=== PATIENT | male | born 1955 | race Caucasian/White ===

== ENCOUNTER 2017-02-26 15:02 | Outpatient (RCR) | payer BC ==
[~2017-02-26 15:02] MED LIST: AMLO5TAB2 PO; HCTZ12.5T PO; LISI10TA PO; MTP50T PO
== END 2017-04-05 | disposition home or self-care (01) ==
LOC: DSME 15:02
PROVIDERS: ATTEND Nurse Practitioner Family
DX: E11.65 Type 2 diabetes mellitus with hyperglycemia (principal); E66.9 Obesity, unspecified

== ENCOUNTER 2017-06-16 08:36 | Outpatient (CLI) | payer BC ==
[~2017-06-16] VITALS: Ht 172.7 cm; Wt 119.7 kg
[2017-06-16 08:50] VITALS: BP 138/72
[2017-06-17] MEDS ORDERED: CYAN500T44 PO (10:57)
[2017-06-17] MEDS ORDERED: SITA100T12 PO (10:57)
[2017-06-17] MEDS ORDERED: CLOP75TA69 PO (10:57)
[2017-06-17] MEDS ORDERED: METO50TA15 PO (10:57)
[2017-06-17] MEDS ORDERED: OMEG-154 PO (10:57)
[2017-06-17] MEDS ORDERED: HYDR-3812 PO (10:57)
[2017-06-17] MEDS ORDERED: AMLO5TAB2 PO (10:57)
[2017-06-17] MEDS ORDERED: METF500T4 PO (10:57)
[2017-06-17] MEDS ORDERED: CLON0.1T PO (10:57)
[2017-06-17] MEDS ORDERED: BUTA1CAP41 PO (10:57)
[2017-06-17] MEDS ORDERED: LISI10TA2 PO (10:57)
[2017-06-17] MEDS ORDERED: ASPI-586 PO (10:57)
[2017-06-17] MEDS ORDERED: CHOL200059 PO (12:10)
[2017-06-17] MEDS ORDERED: MAGN400T39 PO (12:10)
[2017-06-17] MEDS ORDERED: NIAC500T24 PO (12:10)
== END 2017-06-16 09:00 | disposition home or self-care (01) ==
LOC: PREOP 08:36
PROVIDERS: ATTEND Surgery
DX: Z01.818 Encounter for other preprocedural examination (principal); Z11.2 Encounter for screening for other bacterial diseases; K42.9 Umbilical hernia without obstruction or gangrene
CPT/HCPCS: 87081

== ENCOUNTER 2017-06-19 06:00 | Day surgery (SDC) | payer BC ==
[2017-06-17 14:15] VITALS: BP 106/61
[~2017-06-19] VITALS: Ht 172.7 cm; Wt 119.7 kg
[~2017-06-19 06:00] MED LIST changes: +ASPI-586 PO; +BUTA1CAP41 PO; +CHOL200059 PO; +CLON0.1T PO; +CLOP75TA69 PO; +CYAN500T44 PO; +HYDR-3812 PO; +LISI10TA2 PO; +MAGN400T39 PO; +METF500T4 PO; +METO50TA15 PO; +NIAC500T24 PO; +OMEG-154 PO; +SITA100T12 PO
[2017-06-19] MEDS ORDERED: LACTATED RINGERS 1,000 ML IV PRN (07:06)
[2017-06-19 07:45] VITALS: BP 114/64
[2017-06-19] MEDS ORDERED: ceFAZolin 2 GM/NS 50 ML IV ONE (08:00)
[2017-06-19] MEDS: LACTATED RINGERS 1,000 ML IV PRN ×2 (08:20→11:35)
[2017-06-19] MEDS ORDERED: ceFAZolin 2 GM/50 ML NS 50 ML IV ONE (08:30)
[2017-06-19] MEDS ORDERED: NEOSTIGMINE (BLOXIVERZ ) 1 MG/1ML 10 ML VIAL ONE (10:23)
[2017-06-19] MEDS ORDERED: fentaNYL INJECTION 250 MCG/5 ML AMP ONE (10:23)
[2017-06-19] MEDS ORDERED: ONDANSETRON 4 MG/2 ML (SDV) Z0FRAN ONE (10:23)
[2017-06-19] MEDS ORDERED: proPOfol 200 MG/20 ML (DIPRIVAN) VIAL IV ONE (10:23)
[2017-06-19] MEDS ORDERED: GLYCOPYRROLATE 0.2 MG/ML (ROBINUL) 2 ML VIAL ONE (10:23)
[2017-06-19] MEDS ORDERED: LIDOCAINE PF 2% 5 ML (XYLOCAINE) VIAL ONE (10:23)
[2017-06-19] MEDS ORDERED: MIDAZOLAM 2 MG/2 ML (VERSED) VIAL ONE (10:23)
[2017-06-19] MEDS ORDERED: ROCURONIUM 50 MG/5 ML (ZEMURON) VIAL IV ONE (10:23)
[2017-06-19] MEDS ORDERED: SEVOFLURANE (ULTANE) 15 ML INHAL SOLN ONE (10:23)
[2017-06-19] MEDS ORDERED: LIDOCAINE 1% INJ 20 ML (XYLOCAINE) VIAL ONE (10:29)
[2017-06-19] MEDS ORDERED: BUPIVACAINE 0.5% 30 ML (SENSORCAINE) VIAL ONE (10:29)
[2017-06-19] MEDS ORDERED: LIDOCAINE 1% INJ 20 ML (XYLOCAINE) VIAL INJ ONE (11:30)
[2017-06-19] MEDS ORDERED: BUPIVACAINE 0.5% 30 ML (SENSORCAINE) VIAL INJ ONE (11:30)
--- NOTE | 2017-06-19 11:56 | Progress Note-Post Operative ---
Post-Operative Progess Note Surgeon (s)/Radiologic Technician (s) Surgeon SNEHA FARRIS DO Radiologic Technician: Dr. Gonsales Pre-Operative Diagnosis hernia repair Post-Operative Diagnosis umiblical hernia, possible cirrhosis Procedure & Operative Findings Date of Procedure 06/19/17 Procedure Performed/Findings lap umbilical hernia repair and liver biopsy Anesthesia Type general Estimated Blood Loss Estimated blood loss (mL): minimal Specimens/Packing Specimens Removed liver biopsy SNEHA FARRIS DO Jun 19, 2017 11:56
[2017-06-19] MEDS ORDERED: DOCU-143 PO (11:58)
[2017-06-19] MEDS ORDERED: HYDR-3812 PO (11:58)
[2017-06-19] MEDS ORDERED: HYDROcodone/APAP 5 MG/325 MG (LORTAB) TAB PO PRN (12:00)
--- NOTE | 2017-06-19 12:00 | Discharge Inst-Simple/Standard ---
Discharge Inst-Standard Discharge Medications New, Converted or Re-Newed RX: RX on Chart Patient Instructions/Follow Up Plan of Care/Instructions/FU: 3 weeks Qamar Activity as Tolerated: No Discharge Diet: Regular Diet Other Inst to Patient Follow up Appt: Make appointment for 3 week. Instructions: No lifting greater than 10 pounds. No strenuous activity. May shower in 24 hours, no tub bath or soaking. Use incentive spirometer at home as directed. No Smoking Skin/Wound Care: May remove bandages in 48hrs You have special glue over incision it will fall off on its own. Symptoms to Report: Appetite Changes, Extremity Discoloration, Numbness/Tingling, Swelling Increased , Bleeding Excessive, Eyesight Changes, Pain Increased, Urine Color Change, Constipation(Persistent), Fever over 101 degree F, Pain/Pressure in chest, Urinating Difficulty, Cough Up/Vomit Blood, Heart Beat Irreg/Pounding, Pain/ Pressure in jaw, Vaginal Bleeding Increase, Cramps in feet or legs, Lightheadedness, Pain/Pressure in shoulder, Diarrhea(Persistent), Memory Changes Suddenly, Questions/Concerns, Weight gain consecutive days, Dizziness/ Fainting, Nausea/Vomiting, Shortness of Breath, Weight gain over 2 pounds If questions or concerns contact your physician Or seek help at emergency department. SNEHA FARRIS DO Jun 19, 2017 12:00
[2017-06-19] MEDS ORDERED: ONDANSETRON 4 MG/2 ML (SDV) Z0FRAN IVP PRN (12:30)
[2017-06-19] MEDS ORDERED: morphine INJ 10 MG/ML 1ML (SYR OR VIAL) IVP PRN (12:30)
[2017-06-19] MEDS ORDERED: HYDROmorphone (DILAUDID) 2 MG/ML VIAL IVP PRN (12:30)
--- NOTE | 2017-06-19 13:14 | Anesthesia-General Post-Op ---
General Patient Condition Mental Status/LOC: Same as Preop Cardiovascular: Satisfactory Nausea/Vomiting: Absent Respiratory: Satisfactory Pain: Controlled Complications: Absent Post Op Complications Complications None Follow Up Care/Instructions Patient Instructions None needed. Anesthesia/Patient Condition Patient Condition Patient is doing well, no complaints, stable vital signs, no apparent adverse anesthesia problems. No complications reported per nursing. D/C home per [facility] [place] Criteria: AUSTIN Marshall DO Jun 19, 2017 13:14
[2017-06-19 13:15] VITALS: BP 95/56
[2017-06-19 13:45] VITALS: BP 100/61
[2017-06-19 13:50] VITALS: BP 100/61
--- NOTE | 2017-06-19 19:06 | OPERATIVE REPORT ---
DATE OF SERVICE: 06/19/2017 PREOPERATIVE DIAGNOSIS: Umbilical hernia. POSTOPERATIVE DIAGNOSIS: Umbilical hernia. Possible cirrhosis. PROCEDURE: Laparoscopic umbilical hernia repair with 6 inch echo Ventralight mesh and liver biopsy using a Haim-Cut needle. SURGEON: Rhys Foote DO ASSISTANT SHIFT SUPERVISOR: Dr. Gonsales, who assisted in retraction, dissection and closure. ANESTHESIA: General. ESTIMATED BLOOD LOSS: Minimal. COMPLICATIONS: None. INDICATIONS: The patient is a 61-year-old male with an umbilical hernia. He was explained risks and benefits of procedure and wished to proceed with procedure. Consent was signed and in the chart. PROCEDURE: The patient was taken to the operating suite, was prepped and draped in sterile fashion. Surgical pause was performed. A stab incision was made in the left upper quadrant. Veress needle was inserted in the abdomen and pneumoperitoneum was achieved. Under direct visualization of the laparoscope, a 5 mm trocar was then placed. The hernia noted with omental fat in through the defect. A 12 mm trocar was then placed in the left lower quadrant and a 5 mm trocar was placed in the right lower quadrant. The hernia contents were then reduced. The hernia defect was then closed through a stab incision using a Deandre-Amaris and 0 Vicryl suture. The abdomen was then inspected. The liver had some surface changes possible early cirrhosis. Therefore, it was decided to take a Haim-Cut biopsy of the liver. A stab incision was made in the epigastric region of the abdomen. A Haim-Cut needle was inserted into the abdomen and into the liver and biopsy was obtained. Hook cautery was used to achieve hemostasis. A 6 inch echo Ventralight mesh was then inserted into the abdomen and grasped through a stab incision at the umbilicus. The balloon was then insufflated. A SecureStrap Tacker was then used to tack the mesh in place circumferentially. The balloon was then removed and an inner crown was made as well. There was adequate coverage. The 12 mm trocar site was then closed using 0 Vicryl with an Endoclose after the trocar was removed. The abdomen was then desufflated, the trocars were removed. The skin was then closed using 4-0 Vicryl in a subcuticular fashion. The areas were then washed and dried and Dermabond was placed over the incisions. The patient tolerated procedure well without any complications and taken to recovery room in stable condition. Job ID: [id number] DocumentID: [id number] Dictated Date: 06/19/2017 13:38:19 Residency Program Coordinator Date: 06/19/2017 19:05:12 Dictated By: DO CAROLYN ORR
== END 2017-06-19 14:45 | disposition home or self-care (01) ==
LOC: SDC 06:00
PROVIDERS: ATTEND Surgery
DX: K42.9 Umbilical hernia without obstruction or gangrene (principal); I10 Essential (primary) hypertension; I25.10 Atherosclerotic heart disease of native coronary artery without angina pectoris; E11.9 Type 2 diabetes mellitus without complications; G43.909 Migraine, unspecified, not intractable, without status migrainosus; E66.9 Obesity, unspecified; Z68.41 Body mass index [BMI] 40.0-44.9, adult; Z95.5 Presence of coronary angioplasty implant and graft; Z79.02 Long term (current) use of antithrombotics/antiplatelets; Z79.899 Other long term (current) drug therapy; Z79.82 Long term (current) use of aspirin
CPT/HCPCS: 82962

== ENCOUNTER → 2017-07-15 | Outpatient (CLI) | payer BC ==
[~2017-07-15] MED LIST changes: +ACHD5005 PO; +DOCU-143 PO; -HYDR-3812 PO
--- NOTE | 2017-07-15 19:16 | Diagnostic Imaging Report ---
INDICATION: Abdominal pain and vomiting. Comparison is made to the prior study from . FINDINGS: There is a moderate degree of stool within the visualized portions of the colon. There is some gas within the transverse colon and there is gas within the stomach without significant distention. There is no small bowel dilation evident. Lung bases appear clear. There is no significant free air. There are degenerative features present within the lumbar spine. IMPRESSION: 1. Moderate stool within the colon with mild gaseous distention of the stomach. There is no evidence to suggest abnormal small bowel dilation. Dictated by: Dictated on workstation # [id number]
== END ==
LOC: RAD 18:46
PROVIDERS: ATTEND Nurse Practitioner Family
DX: K31.89 Other diseases of stomach and duodenum (principal); R11.10 Vomiting, unspecified
CPT/HCPCS: 74018

== ENCOUNTER 2017-07-16 10:12 | Outpatient (CLI) | payer BC ==
[~2017-07-16] VITALS: Ht 172.7 cm; Wt 119.7 kg
[2017-07-16 10:20] VITALS: BP 168/88
[2017-07-16] MEDS ORDERED: FLEET ENEMA ADULT 1 EA BTL ONE (10:31)
[2017-07-16] MEDS ORDERED: FLEET ENEMA ADULT 1 EA BTL PR ONE ×2 (11:15→11:30)
[2017-07-16] MEDS ORDERED: fentaNYL INJECTION 100 MCG/2 ML AMP ONE (11:27)
[2017-07-16] MEDS ORDERED: BISACODYL 10 MG SUPP (DULCOLAX) PR ONE (11:30)
[2017-07-16] MEDS ORDERED: fentaNYL INJECTION 100 MCG/2 ML AMP IM ONE (11:30)
== END 2017-07-16 13:42 | disposition home or self-care (01) ==
LOC: SDC 10:12
PROVIDERS: ATTEND Nurse Practitioner Family
DX: K59.00 Constipation, unspecified (principal); D64.9 Anemia, unspecified
CPT/HCPCS: 99212

== ENCOUNTER 2020-11-13 01:16 | Observation (INO) | payer BC ==
[2020-11-13] VITALS (8 sets, daily range): BP systolic 125–151; BP diastolic 53–92
[~2020-11-13] VITALS: Ht 172.7 cm; Wt 122.0 kg
[~2020-11-13 01:16] MED LIST changes: +AMLO-250 PO; +CLN.1T PO; -CLON0.1T PO; -LISI10TA2 PO; +LISI10TA25 PO; +METF-397 PO; -METF500T4 PO
[2020-11-13] MEDS ORDERED: NITROGLYCERIN 0.4 MG SL TABS BTL 25'S SL PRN ×2 (01:45→04:15)
[2020-11-13] MEDS ORDERED: ASPIRIN 81 MG CHEW (CHILDREN'S ASA) PO ONE (01:45)
--- NOTE | 2020-11-13 01:53 | ED Chest Pain ---
General Chief Complaint: Respiratory Problems Stated Complaint: SOB;R ARM PAIN Nursing Triage Note: Patient states that he began experiencing shortness of breath x 2 1/2 hours ago and then right arm pain began approximately 45 min. ago. Patient setates he has experienced this before and its probably his heart. He advised hx. of 7 stents. Nursing Sepsis Screen: No Definite Risk Source: patient, other (Significant other) Exam Limitations: no limitations History of Present Illness Date Seen by Provider: November 13, 2020 Time Seen by Provider: 01:33 Initial Comments Patient to the ER by private conveyance from home with chief complaint of right shoulder pain starting about an hour ago. Radiates up into his neck and jaw. He is having shortness of air about 2 hours ago. He associates this with his heart disease. He is had stents placed by Dr. Vasquez in [place]. He lives near [place], [place]. He took 1 tablet of 81 mg aspirin 2 hours ago and no nitroglycerin. He has had no fevers chills cough. Shortly after arriving here he started having some shaking jerking motion in his right shoulder that he says is uncontrollable and he is not had before. He does not take any Phenergan. He does occasionally take oxycodone for back pain but none recently. He has diabetes on Jardiance and glipizide as well as Januvia. He has hypertension on clonidine and no mention of hyperlipidemia. He is not a smoker. 4 hours prior to arrival he was starting to have a migraine headache so he took Zebutal. He used to follow with Dr. Wilson but does not have a primary care provider at this time. When the pain started he was just sitting in his chair watching TV not doing anything strenuous. Allergies and Home Medications Allergies Coded Allergies: No Known Drug Allergies (Unverified , 03/27/12) Home Medications Amlodipine Besylate 5 Mg Tablet, 5 MG PO HS, (Reported) Aspirin 81 Mg Tablet.dr, 81 MG PO DAILY, (Reported) Butalb/Acetaminophen/Caffeine 1 Each Capsule, 1 EACH PO UD PRN for ONSET OF MIGRAINE, (Reported) Cholecalciferol (Vitamin D3) 2,000 Unit Tablet, 2,000 UNIT PO DAILY, (Reported) Clonidine HCl 0.1 Mg Tablet, 0.1 MG PO BID PRN for ELEVATED BP, (Reported) Clopidogrel Bisulfate 75 Mg Tablet, 75 MG PO DAILY, (Reported) Cyanocobalamin (Vitamin B-12) 500 Mcg Tablet, 1,000 MCG PO DAILY, (Reported) TAKE 2 (500MCG) TABS Docusate Sodium 100 Mg Capsule, 100 MG PO BID Prescribed by: SNEHA FARRIS on 06/19/17 1158 Hydrocodone Bit/Acetaminophen 1 Each Tablet, 1-2 EACH PO Q4H PRN for PAIN, (Reported) Hydrocodone Bit/Acetaminophen 1 Each Tablet, 1 TAB PO Q4H PRN Prescribed by: SNEHA FARRIS on 06/19/17 1158 Lisinopril 10 Mg Tablet, 10 MG PO DAILY, (Reported) Magnesium Oxide 400 Mg Tablet, 400 MG PO DAILY, (Reported) Niacinamide 500 Mg Tablet, 500 MG PO DAILY, (Reported) [place]-3S/Dha/Epa/Fish Oil 1 Each Capsule.dr, 1 EACH PO DAILY, (Reported) Sitagliptin Phosphate 100 Mg Tablet, 100 MG PO DAILY, (Reported) Patient Home Medication List Home Medication List Reviewed: Yes Review of Systems Review of Systems Constitutional: No chills, No diaphoresis EENTM: No Blurred Vision, No Double Vision Respiratory: Denies Cough, Denies Orthopnea Cardiovascular: Denies Chest Pain, Denies Lightheadedness Gastrointestinal: Denies Constipated, Denies Diarrhea, Denies Nausea Genitourinary: Denies Burning, Denies Discharge Musculoskeletal: see HPI, joint pain Past Bnicygb-Dfuhvx-Banaui Hx Patient Social History Alcohol Use: Occasionally Uses Number of Drinks Today: AA Alcohol Beverage of Choice: Beer Smoking Status: Former Smoker Former Smoker, Quit: Jun 16, 1982 Recent Infectious Disease Expo: No Recent Hopitalizations: No Immunizations Up To Date Tetanus Booster (TDap): Unknown PED Vaccines UTD: No Seasonal Allergies Seasonal Allergies: No Past Medical History Surgeries: Yes (bilat TKR, right RCR, ) Coronary Stent Respiratory: No Cardiac: Yes (stents x7, ) Hypertension Neurological: Yes Headaches /Migraines Gastrointestinal: Yes (umb hernia) Musculoskeletal: Yes (herniated disc) Arthritis Endocrine: Yes Diabetes, Non-Insulin dep Cancer: No Psychosocial: No Integumentary: Yes (rash on abd currently being treated) Blood Disorders: No Physical Exam Vital Signs Vital Signs - First Documented 11/13/20 01:40 Temp 37.0 Pulse 85 Resp 16 B/P (MAP) 174/79 (110) Pulse Ox 93 O2 Delivery Room Air Capillary Refill : Less Than 3 Seconds Height, Weight, BMI Height: 5'8.00" Weight: 264lbs. 0.0oz. 119.838104ic; 34.00 BMI Method: General Appearance: Anxious, Moderate Distress HEENT: PERRL/EOMI, Moist Mucous Membranes Neck: Full Range of Motion, Normal Inspection, Non Tender, Supple Respiratory: Chest Non Tender, Lungs Clear, Normal Breath Sounds, No Accessory Muscle Use, No Respiratory Distress Cardiovascular: Regular Rate, Rhythm; No No Edema (Trace bipedal edema); Normal Peripheral Pulses Gastrointestinal: Normal Bowel Sounds, Non Tender, Soft Extremity: Normal Capillary Refill, Normal Inspection, No Pedal Edema Neurologic/Psychiatric: Alert, Oriented x3, Other (Right arm jerking motion, occasional grimacing in pain) Skin: Normal Color, Warm/Dry Progress/Results/Core Measures Results/Orders Lab Results Laboratory Tests Test 11/13/20 01:49 11/13/20 02:24 11/13/20 02:50 Range/Units Glucometer 176 H 70-110 MG/DL White Blood Count 7.8 4.3-11.0 10^3/uL Red Blood Count 4.46 4.30-5.52 10^6/uL Hemoglobin 15.3 13.3-17.7 g/dL Hematocrit 45 40-54 % Mean Corpuscular Volume 101 H 80-99 fL Mean Corpuscular Hemoglobin 34 25-34 pg Mean Corpuscular Hemoglobin Concent 34 32-36 g/dL Red Cell Distribution Width 12.6 10.0-14.5 % Platelet Count 145 130-400 10^3/uL Mean Platelet Volume 10.6 9.0-12.2 fL Immature Granulocyte % (Auto) 0 % Neutrophils (%) (Auto) 44 42-75 % Lymphocytes (%) (Auto) 42 12-44 % Monocytes (%) (Auto) 10 0-12 % Eosinophils (%) (Auto) 3 0-10 % Basophils (%) (Auto) 1 0-10 % Neutrophils # (Auto) 3.4 1.8-7.8 10^3/uL Lymphocytes # (Auto) 3.3 1.0-4.0 10^3/uL Monocytes # (Auto) 0.8 0.0-1.0 10^3/uL Eosinophils # (Auto) 0.3 0.0-0.3 10^3/uL Basophils # (Auto) 0.1 0.0-0.1 10^3/uL Immature Granulocyte # (Auto) 0.0 0.0-0.1 10^3/uL Prothrombin Time 13.9 12.2-14.7 SEC INR Comment 1.0 0.8-1.4 Activated Partial Thromboplast Time 27 24-35 SEC Sodium Level 143 135-145 MMOL/L Potassium Level 4.0 3.6-5.0 MMOL/L Chloride Level 104 98-107 MMOL/L Carbon Dioxide Level 25 21-32 MMOL/L Anion Gap 14 5-14 MMOL/L Blood Urea Nitrogen 7 7-18 MG/DL Creatinine 0.79 0.60-1.30 MG/DL Estimat Glomerular Filtration Rate > 60 BUN/Creatinine Ratio 9 Glucose Level 163 H 70-105 MG/DL Calcium Level 9.0 8.5-10.1 MG/DL Corrected Calcium 9.2 8.5-10.1 MG/DL Magnesium Level 2.1 1.6-2.4 MG/DL Total Bilirubin 0.6 0.1-1.0 MG/DL Aspartate Amino Transf (AST/SGOT) 45 H 5-34 U/L Alanine Aminotransferase (ALT/SGPT) 34 0-55 U/L Alkaline Phosphatase 95 40-136 U/L Myoglobin 95.7 H 10.0-92.0 NG/ML Troponin I < 0.028 <0.028 NG/ML Total Protein 7.4 6.4-8.2 GM/DL Albumin 3.8 3.2-4.5 GM/DL My Orders Orders - TULIO PINA Continuous Ekg Monitoring (11/13/20 01:38) Ekg Tracing (11/13/20:38) Accucheck Stat ONCE (11/13/20:45) Cbc With Automated Diff (11/13/20:45) Magnesium (11/13/20:45) Chest 1 View, Ap/Pa Only (11/13/20:45) Ekg Tracing (11/13/20:45) Comprehensive Metabolic Panel (11/13/20:45) Myoglobin Serum (5/10/21 01:45) Protime With Inr (11/13/20 01:45) Partial Thromboplastin Time (11/13/20 01:45) O2 (11/13/20 01:45) Monitor-Rhythm Ecg Trace Only (11/13/20 01:45) Lipid Panel (11/14/20 06:00) Ed Iv/Invasive Line Start (11/13/20 01:45) Troponin I (11/13/20 01:45) Nitroglycerin 0.4 Mg Btl 25's (Nitrostat (11/13/20 01:45) Aspirin Chewable Tablet (Baby Aspirin Ch (11/13/20 01:45) Ed Iv/Invasive Line Start (11/13/20 02:33) Ns Iv 500 Ml (Sodium Chloride 0.9%) (11/13/20 02:45) Ua Culture If Indicated (11/13/20 02:33) Drug Screen Stat (Urine) (11/13/20 02:33) Medications Given in ED Current Medications Medications Dose Ordered Sig/Roque Route Start Time Stop Time Status Last Admin Dose Admin Aspirin 243 mg ONCE ONCE PO 11/13/20 01:45 11/13/20 01:48 DC 11/13/20 02:03 243 MG Nitroglycerin 0.4 mg UD PRN SL 11/13/20 01:45 11/13/20 02:03 0.4 MG Sodium Chloride 500 ml @ 0 mls/hr Q0M ONCE IV 11/13/20 02:45 11/13/20 02:46 DC 11/13/20 02:44 0 MLS/HR Vital Signs/I&O 11/13/20 11/13/20 01:40 01:59 Temp 37.0 Pulse 85 Resp 16 B/P (MAP) 174/79 (110) Pulse Ox 93 97 O2 Delivery Room Air Room Air Blood Pressure Mean: 110 Progress Progress Note : Time: 01:52 Progress Note Plan to give him another 3 tablets of 81 mg aspirin and some nitroglycerin to see if this helps for his atypical angina symptoms. EKG shows some PVCs. Concerned about his dystonic looking right arm movements. Could be related to the pain or could be related to the barbiturate. Labs obtained waiting for tr oponin which would be about 1 hour after pain started. Even if he has a negative troponin his heart score would be 7 points recommending observation stay. Initial ECG Impression Date: November 13, 2020 Initial ECG Impression Time: 01:39 Initial ECG Rate: 94 Initial ECG Rhythm: Normal Sinus Initial ECG Intervals: QT (521) Initial ECG Impression: Normal, Nonspecific Changes Comment Sinus rhythm with right bundle branch block and prolonged QTC. PVCs noted. No clinically relevant ST changes. Diagnostic Imaging Diagonstic Imaging: Xray Plain Films/CT/US/NM/MRI: chest Comments No acute cardiopulmonary process on 1 view chest Xray Reviewed: Reviewed by Me Departure Communication (Admissions) Time/Spoke to Admitting Phy: 03:10 Discussed the case with Dr. Shaver and she agrees to observe the patient with consultation to cardiology. Time/Spoke to Consulting Phy: 03:[address] Palacios he recommends n.p.o. status and Lopressor 5 mg IV for the PVCs. Impression Primary Impression: Unstable angina Disposition: ADMITTED INPATIENT Condition: Stable Admissions Decision to Admit Reason: Admit from ER (General) Decision to Admit/Date: November 13, 2020 Time/Decision to Admit Time: 02:00 Departure-Patient Inst. Referrals: DUSTIN WILSON MD (PCP/Family) Primary Care Physician TULIO PINA November 13, 2020 01:53
[2020-11-13 02:32] LABS: BASOPHILS # (AUTO) 0.1 10^3/uL (0.0-0.1); BASOPHILS % (AUTO) 1 % (0-10); EOSINOPHILS # (AUTO) 0.3 10^3/uL (0.0-0.3); EOSINOPHILS % (AUTO) 3 % (0-10); HEMATOCRIT 45 % (40-54); HEMOGLOBIN 15.3 g/dL (13.3-17.7); LYMPHOCYTES # (AUTO) 3.3 10^3/uL (1.0-4.0); LYMPHOCYTES % (AUTO) 42 % (12-44); MEAN CORPUSCULAR HEMOGLOBIN 34 pg (25-34); MEAN CORPUSCULAR HGB CONC 34 g/dL (32-36); MEAN CORPUSCULAR VOLUME 101 fL (80-99); MEAN PLATELET VOLUME 10.6 fL (9.0-12.2); MONOCYTES # (AUTO) 0.8 10^3/uL (0.0-1.0); MONOCYTES % (AUTO) 10 % (0-12); NEUTROPHILS # (AUTO) 3.4 10^3/uL (1.8-7.8); NEUTROPHILS % (AUTO) 44 % (42-75); PLATELET COUNT 145 10^3/uL (130-400); WHITE BLOOD COUNT 7.8 10^3/uL (4.3-11.0)
[2020-11-13 02:43] LABS: ALBUMIN 3.8 GM/DL (3.2-4.5); CHLORIDE 104 MMOL/L (98-107); SODIUM 143 MMOL/L (135-145)
[2020-11-13 02:45] LABS: GLUCOSE 163 MG/DL (70-105); TOTAL PROTEIN 7.4 GM/DL (6.4-8.2)
[2020-11-13] MEDS ORDERED: NS IV 500 ML 500 ML IV ONE (02:45)
[2020-11-13 02:46] LABS: CARBON DIOXIDE 25 MMOL/L (21-32); PROTHROMBIN TIME PATIENT 13.9 SEC (12.2-14.7)
[2020-11-13 02:47] LABS: BILIRUBIN,TOTAL 0.6 MG/DL (0.1-1.0)
[2020-11-13 02:48] LABS: ALKALINE PHOSPHATASE 95 U/L (40-136)
[2020-11-13 02:49] LABS: CREATININE SERUM 0.79 MG/DL (0.60-1.30); GFR ESTIMATED > 60
[2020-11-13 02:50] LABS: BUN/CREATININE RATIO 9
[2020-11-13 02:51] LABS: MAGNESIUM 2.1 MG/DL (1.6-2.4)
[2020-11-13 02:52] LABS: ALANINE AMINOTRANSFERASE 34 U/L (0-55)
[2020-11-13 02:59] LABS: BILIRUBIN,URINE NEGATIVE (NEGATIVE); CLARITY,URINE CLEAR; COLOR,URINE YELLOW; GLUCOSE, URINE (UA) 3+ (NEGATIVE); KETONES,URINE NEGATIVE (NEGATIVE); LEUKOCYTE ESTERASE ,URINE NEGATIVE (NEGATIVE); NITRITE,URINE NEGATIVE (NEGATIVE); PH,URINE 7.5 (5-9); PROTEIN,URINE NEGATIVE (NEGATIVE)
[2020-11-13 03:06] LABS: BACTERIA,URINE NEGATIVE /HPF; RBC,URINE RARE /HPF; SQUAMOUS EPITHELIAL CELL,UR 0-2 /HPF
[2020-11-13 03:11] LABS: AMPHETAMINE SCREEN, URINE NEGATIVE (NEGATIVE); BARBITURATE SCREEN URINE POSITIVE (NEGATIVE); BENZODIAZEPINES SCREEN URINE NEGATIVE (NEGATIVE); CANNABINOID SCREEN, URINE NEGATIVE (NEGATIVE); COCAINE SCREEN URINE NEGATIVE (NEGATIVE); METHADONE STAT NEGATIVE (NEGATIVE); METHAMPHETAMINE SCREEN URINE S NEGATIVE (NEGATIVE); OPIATE SCREEN URINE POSITIVE (NEGATIVE); OXYCODONE STAT NEGATIVE (NEGATIVE); PROPOXYPHENE STAT NEGATIVE (NEGATIVE); TRICYCLIC ANTIDEPRESSANTS SCRE NEGATIVE (NEGATIVE)
[2020-11-13] MEDS ORDERED: morphine INJ 10 MG/ML 1ML (SYR OR VIAL) IVP STA (03:24)
[2020-11-13] MEDS ORDERED: meTOprolol 5 MG/5 ML (LOPRESSOR) VIAL IV ONE (03:30)
[2020-11-13] MEDS ORDERED: NS IV 1000 ML 1,000 ML ONE (04:03)
[2020-11-13] MEDS ORDERED: ONDANSETRON 4 MG/2 ML (SDV) Z0FRAN IVP PRN (04:15)
[2020-11-13] MEDS ORDERED: NS IV 1000 ML 1,000 ML IV SCH (04:15)
[2020-11-13] MEDS ORDERED: morphine INJ 4 MG/ML 1 ML (VIAL/SYRINGE) IV PRN (04:15)
[2020-11-13] MEDS ORDERED: MELO10CA3 PO (04:48)
[2020-11-13] MEDS ORDERED: GLIP2.5T15 PO (04:48)
[2020-11-13] MEDS ORDERED: EMPA10TA PO (04:48)
[2020-11-13] MEDS ORDERED: BUTA1CAP44 PO (04:48)
[2020-11-13] MEDS ORDERED: inSUlin ASPART (NovoLOG) 1 UNIT/0.01 ML (CHARGE PER UNIT) SC SCH (06:00)
--- NOTE | 2020-11-13 07:29 | Diagnostic Imaging Report ---
INDICATION: Chest pain AP view of the chest is obtained. There is no previous study for comparison. There is suboptimal inspiration. No pneumothorax or consolidation is identified. Heart size and pulmonary vascularity appear to be within normal limits. IMPRESSION: Hypoventilation without acute abnormality. Dictated by: Dictated on workstation # [id number]
[2020-11-13] MEDS ORDERED: ASPIRIN E.C. 81 MG (ECOTRIN) TAB PO SCH (09:00)
--- NOTE | 2020-11-13 11:33 | Consultation-Cardiology ---
HPI-Cardiology Cardiology Consultation Date of Consultation 11/13/20 Date of Admission Time Seen by Provider: 11:30 Indication: Chest pain HPI 65 years old gentleman with history of coronary artery disease, hypertension hyperlipidemia, has been following with Dr. Vasquez as an outpatient, had multiple interventions in the past. Came into the hospital with acute episode of chest pain and shortness of breath, relieved by nitroglycerin, patient expressed that he is not fully 100% back to normal. Denied any palpitation. No syncope or near syncopal episodes. Home Medications & Allergies Allergies: Coded Allergies: No Known Drug Allergies (Unverified , 03/27/12) Home Medication List Reviewed: Yes GZY-Ydvndi-Rclycq Hx Patient Social History Marital Status: Employed/Student: retired Recreational Drug Use: No Smoking Status: Former Smoker Recent Hopitalizations: No Have you traveled recently?: No Alcohol Use?: No Immunizations Up To Date Tetanus Booster (TDap): Unknown Past Medical History Discussed below Family Medical History Family Medical Hx Noncontributory Review of Systems-General Review of Systems Constitutional: No chills, No diaphoresis EENTM: see HPI, no symptoms reported Respiratory: see HPI; No cough; dyspnea on exertion; No hemoptysis, No orthopnea, No phlegm, No short of breath, No stridor, No wheezing, No other Cardiovascular: see HPI, chest pain; No edema, No Hx of Intervention, No palpitations, No syncope, No vascular heart diseas, No other Gastrointestinal: no symptoms reported, see HPI Genitourinary: no symptoms reported, see HPI Musculoskeletal: see HPI, joint pain Skin: no symptoms reported, see HPI Psychiatric/Neurological: No Symptoms Reported, See HPI Reviewed Test Results Reviewed Test Results Lab Laboratory Tests Test 11/13/20 01:49 11/13/20 02:24 11/13/20 02:50 11/13/20 06:48 Range/Units Glucometer 176 H 124 H 70-110 MG/DL White Blood Count 7.8 4.3-11.0 10^3/uL Red Blood Count 4.46 4.30-5.52 10^6/uL Hemoglobin 15.3 13.3-17.7 g/dL Hematocrit 45 40-54 % Mean Corpuscular Volume 101 H 80-99 fL Mean Corpuscular Hemoglobin 34 25-34 pg Mean Corpuscular Hemoglobin Concent 34 32-36 g/dL Red Cell Distribution Width 12.6 10.0-14.5 % Platelet Count 145 130-400 10^3/uL Mean Platelet Volume 10.6 9.0-12.2 fL Immature Granulocyte % (Auto) 0 % Neutrophils (%) (Auto) 44 42-75 % Lymphocytes (%) (Auto) 42 12-44 % Monocytes (%) (Auto) 10 0-12 % Eosinophils (%) (Auto) 3 0-10 % Basophils (%) (Auto) 1 0-10 % Neutrophils # (Auto) 3.4 1.8-7.8 10^3/uL Lymphocytes # (Auto) 3.3 1.0-4.0 10^3/uL Monocytes # (Auto) 0.8 0.0-1.0 10^3/uL Eosinophils # (Auto) 0.3 0.0-0.3 10^3/uL Basophils # (Auto) 0.1 0.0-0.1 10^3/uL Immature Granulocyte # (Auto) 0.0 0.0-0.1 10^3/uL Prothrombin Time 13.9 12.2-14.7 SEC INR Comment 1.0 0.8-1.4 Activated Partial Thromboplast Time 27 24-35 SEC Sodium Level 143 135-145 MMOL/L Potassium Level 4.0 3.6-5.0 MMOL/L Chloride Level 104 98-107 MMOL/L Carbon Dioxide Level 25 21-32 MMOL/L Anion Gap 14 5-14 MMOL/L Blood Urea Nitrogen 7 7-18 MG/DL Creatinine 0.79 0.60-1.30 MG/DL Estimat Glomerular Filtration Rate > 60 BUN/Creatinine Ratio 9 Glucose Level 163 H 70-105 MG/DL Calcium Level 9.0 8.5-10.1 MG/DL Corrected Calcium 9.2 8.5-10.1 MG/DL Magnesium Level 2.1 1.6-2.4 MG/DL Total Bilirubin 0.6 0.1-1.0 MG/DL Aspartate Amino Transf (AST/SGOT) 45 H 5-34 U/L Alanine Aminotransferase (ALT/SGPT) 34 0-55 U/L Alkaline Phosphatase 95 40-136 U/L Myoglobin 95.7 H 10.0-92.0 NG/ML Troponin I < 0.028 <0.028 NG/ML Total Protein 7.4 6.4-8.2 GM/DL Albumin 3.8 3.2-4.5 GM/DL Urine Color YELLOW Urine Clarity CLEAR Urine pH 7.5 5-9 Urine Specific [place] 1.010 L 1.016-1.022 Urine Protein NEGATIVE NEGATIVE Urine Glucose (UA) 3+ H NEGATIVE Urine Ketones NEGATIVE NEGATIVE Urine Nitrite NEGATIVE NEGATIVE Urine Bilirubin NEGATIVE NEGATIVE Urine Urobilinogen 0.2 < = 1.0 MG/DL Urine Leukocyte Esterase NEGATIVE NEGATIVE Urine RBC (Auto) NEGATIVE NEGATIVE Urine RBC RARE /HPF Urine WBC NONE /HPF Urine Squamous Epithelial Cells 0-2 /HPF Urine Renal Epithelial Cells NONE /HPF Urine Crystals NONE /LPF Urine Bacteria NEGATIVE /HPF Urine Casts NONE /LPF Urine Mucus NEGATIVE /LPF Urine Culture Indicated NO Urine Opiates Screen POSITIVE H NEGATIVE Urine Oxycodone Screen NEGATIVE NEGATIVE Urine Methadone Screen NEGATIVE NEGATIVE Urine Propoxyphene Screen NEGATIVE NEGATIVE Urine Barbiturates Screen POSITIVE H NEGATIVE Ur Tricyclic Antidepressants Screen NEGATIVE NEGATIVE Urine Phencyclidine Screen NEGATIVE NEGATIVE Urine Amphetamines Screen NEGATIVE NEGATIVE Urine Methamphetamines Screen NEGATIVE NEGATIVE Urine Benzodiazepines Screen NEGATIVE NEGATIVE Urine Cocaine Screen NEGATIVE NEGATIVE Urine Cannabinoids Screen NEGATIVE NEGATIVE Test 11/13/20 07:55 Range/Units Troponin I < 0.028 <0.028 NG/ML Physical Exam Physical Exam Vital Signs Vital Signs - First Documented 11/13/20 01:40 Temp 37.0 Pulse 85 Resp 16 B/P (MAP) 174/79 (110) Pulse Ox 93 O2 Delivery Room Air Capillary Refill : Less Than 3 Seconds Height, Weight, BMI Height: 5'8.00" Weight: 264lbs. 0.0oz. 119.909425kh; 40.90 BMI Method: General Appearance: Anxious, Moderate Distress Eyes: Bilateral Eye Normal Inspection, Bilateral Eye PERRL, Bilateral Eye EOMI HEENT: PERRL/EOMI, Moist Mucous Membranes Neck: Full Range of Motion, Normal Inspection, Non Tender, Supple Respiratory: Chest Non Tender, Lungs Clear, Normal Breath Sounds, No Accessory Muscle Use, No Respiratory Distress Cardiovascular: Regular Rate, Rhythm; No No Edema (Trace bipedal edema); Normal Peripheral Pulses Gastrointestinal: Normal Bowel Sounds, Non Tender, Soft Back: Normal Inspection, No CVA Tenderness, No Vertebral Tenderness Extremity: Normal Capillary Refill, Normal Inspection, No Pedal Edema Neurologic/Psychiatric: Alert, Oriented x3, Other (Right arm jerking motion, occasional grimacing in pain) Skin: Normal Color, Warm/Dry Lymphatic: No Adenopathy A/P-Cardiology Admission Diagnosis Chest pain Coronary artery disease Hypertension Hyperlipidemia Assessment/Plan Chest pain nonspecific etiology resembling angina, patient has multiple risk factors, extensive cardiac history, I offered the patient cardiac catheterization, he has declined the procedure and reported that he prefer to have it done in [facility] with his primary crester. I contacted [facility] crester on-call Dr. Mccann and explained the situation to him and he expressed that the only way to accept the patient is to transfer him by ambulance. The patient is refusing to go by ambulance. I instructed him to follow-up with his primary crester as soon as possible and return to the emergency room if he started to have chest pain meanwhile. Coronary artery disease, multiple interventions in the past. Had 6 or 7 stents in the past. Followed and managed by Dr. Vasquez Hypertension, restart home medication monitor blood pressure Hyperlipidemia, monitor lipids Obesity, BMI 40, we discussed weight loss. ALLEGRA MONIQUE MD November 13, 2020 11:33 am
--- NOTE | 2020-11-13 13:06 | Discharge Summary ---
Discharge Summary Hospital Course Was the Problem List Reviewed?: Yes Problems/Dx: (1) Chest pain Status: Acute Qualifiers: Qualified Codes: R07.9 - Chest pain, unspecified Hospital Course Date of Admission: November 13, 2020 at 03:24 Admission Diagnosis : Chest pain Family Physician/Provider: Rolanda Wilson MD Date of Discharge: 11/13/20 Discharge Diagnosis: Chest pain Hospital Course: Raffy Hickey is a 65 year old male with PMH CAD who presented with chest pain. He was given Nitroglycerin and his symptoms improved. His EKG and troponins were unremarkable. Due to his cardiac history and symptoms, Cardiology recommended proceeding with cardiac catheterization. He refused and stated that he had been offered a bypass surgery at [facility] in [place] previously but he declined and underwent extensive coronary stenting. Dr. Palacios attempted to set up a direct admission so the patient could transport himself to [facility], but Dr. Mccann was unwilling to accept him without an ambulance transport. The patient refused ambulance transport. With his chest pain resolved and normal cardiac workup at this time, Cardiology believed it was safe to discharge him home with quick follow up with his kiln puller, Dr. Vasquez. He was discharged home in stable condition. Labs and Pending Lab Test: Laboratory Tests 11/13/20 01:49: Glucometer 176H 11/13/20 02:24: White Blood Count 7.8, Red Blood Count 4.46, Hemoglobin 15.3, Hematocrit 45, Mean Corpuscular Volume 101H, Mean Corpuscular Hemoglobin 34, Mean Corpuscular Hemoglobin Concent 34, Red Cell Distribution Width 12.6, Platelet Count 145, Mean Platelet Volume 10.6, Immature Granulocyte % (Auto) 0, Neutrophils (%) (Auto) 44, Lymphocytes (%) (Auto) 42, Monocytes (%) (Auto) 10, Eosinophils (%) (Auto) 3, Basophils (%) (Auto) 1, Neutrophils # (Auto) 3.4, Lymphocytes # (Auto) 3.3, Monocytes # (Auto) 0.8, Eosinophils # (Auto) 0.3, Basophils # (Auto) 0.1, Immature Granulocyte # (Auto) 0.0, Prothrombin Time 13.9, INR Comment 1.0, Activated Partial Thromboplast Time 27, Sodium Level 143, Potassium Level 4.0, Chloride Level 104, Carbon Dioxide Level 25, Anion Gap 14, Blood Urea Nitrogen 7, Creatinine 0.79, Estimat Glomerular Filtration Rate > 60, BUN/Creatinine Ratio 9, Glucose Level 163H, Calcium Level 9.0, Corrected Calcium 9.2, Magnesium Level 2.1, Total Bilirubin 0.6, Aspartate Amino Transf (AST/SGOT) 45H, Alanine Aminotransferase (ALT/SGPT) 34, Alkaline Phosphatase 95, Myoglobin 95.7H, Troponin I < 0.028, Total Protein 7.4, Albumin 3.8 11/13/20 02:50: Urine Color YELLOW, Urine Clarity CLEAR, Urine pH 7.5, Urine Specific [place] 1.010L, Urine Protein NEGATIVE, Urine Glucose (UA) 3+H, Urine Ketones NEGATIVE, Urine Nitrite NEGATIVE, Urine Bilirubin NEGATIVE, Urine Urobilinogen 0.2, Urine Leukocyte Esterase NEGATIVE, Urine RBC (Auto) NEGATIVE, Urine RBC RARE, Urine WBC NONE, Urine Squamous Epithelial Cells 0-2, Urine Renal Epithelial Cells NONE, Urine Crystals NONE, Urine Bacteria NEGATIVE, Urine Casts NONE, Urine Mucus NEGATIVE, Urine Culture Indicated NO, Urine Opiates Screen POSITIVEH, Urine Oxycodone Screen NEGATIVE, Urine Methadone Screen NEGATIVE, Urine Propoxyphene Screen NEGATIVE, Urine Barbiturates Screen POSITIVEH, Ur Tricyclic Antidepressants Screen NEGATIVE, Urine Phencyclidine Screen NEGATIVE, Urine Amphetamines Screen NEGATIVE, Urine Methamphetamines Screen NEGATIVE, Urine Benzodiazepines Screen NEGATIVE, Urine Cocaine Screen NEGATIVE, Urine Cannabinoids Screen NEGATIVE 11/13/20 06:48: Glucometer 124H 11/13/20 07:55: Troponin I < 0.028 Home Meds Active Lortab 5 Mg Tablet (Acetaminophen/Hydrocodone Bitart) 1 Each Tablet 1 Tab PO Q4H PRN Colace (Docusate Sodium) 100 Mg Capsule 100 Mg PO BID Reported Zebutal 50-325-40 mg Capsule (Butalb/Acetaminophen/Caffeine) 1 Each Capsule 1 Each PO Meloxicam (Meloxicam, Submicronized) 10 Mg Capsule 15 Mg PO PRN Jardiance (Empagliflozin) 10 Mg Tablet 10 Mg PO DAILY Vitamin D-3 (Cholecalciferol (Vitamin D3)) 2,000 Unit Tablet 2,000 Unit PO DAILY Niacin (Niacinamide) 500 Mg Tablet 500 Mg PO DAILY Magnesium (Magnesium Oxide) 400 Mg Tablet 400 Mg PO DAILY Lortab 5 Mg Tablet (Acetaminophen/Hydrocodone Bitart) 1 Each Tablet 1-2 Each PO Q4H PRN Brtwmv-Bhjhqwdn-Seyi 50-300-40 (Butalb/Acetaminophen/Caffeine) 1 Each Capsule 1 Each PO UD PRN Fish Oil [place]-3 Softgel ([place]-3S/Dha/Epa/Fish Oil) 1 Each Capsule.dr 1 Each PO DAILY Clonidine HCl 0.1 Mg Tablet 0.1 Mg PO BID PRN Aspir 81 (Aspirin) 81 Mg Tablet.dr 81 Mg PO DAILY B-12 (Cyanocobalamin (Vitamin B-12)) 500 Mcg Tablet 1,000 Mcg PO DAILY TAKE 2 (500MCG) TABS Januvia (Sitagliptin Phosphate) 100 Mg Tablet 100 Mg PO DAILY Assessment/Pt Instructions Take medications as prescribed. Follow up with your kiln puller. Return with worsening chest pain or if you feel like you are getting worse. Discharge Planning: <30 minutes discharge planning Discharge Instructions Discharge Diet: No Restrictions Activity as Tolerated: Yes Consultations Cardiology Discharge Physical Examination Vital Signs Vital Signs Date Time Temp Pulse Resp B/P (MAP) Pulse Ox O2 Delivery O2 Flow Rate FiO2 11/13/20 12:20 11/13/20 12:00 85 18 Room Air 11/13/20 11:26 37.2 11/13/20 08:00 97 General Appearance: No Apparent Distress, Obese HEENT: Other (EOMI, conjunctivae normal, moist mucous membranes) Respiratory: No Accessory Muscle Use, No Respiratory Distress Cardiovascular: Regular Rate, Rhythm, No Edema Gastrointestinal: No Abnormal Bowel Sounds, No Distended Extremity: Normal Inspection, No Pedal Edema Skin: Normal Color, Warm/Dry Neurologic/Psychiatric: Alert, Oriented x3, Other (angry, agitated) Allergies: Coded Allergies: No Known Drug Allergies (Unverified , 03/27/12) Discharge Summary Date of Admission November 13, 2020 at 03:24 Date of Discharge November 13, 2020 at 12:20 Discharge Date: November 13, 2020 Discharge Time: 12:20 Admission Diagnosis Chest pain Consults/Procedures Consulations Cardiology Discharge Diagnosis (1) Chest pain Status: Acute Qualifiers: Qualified Codes: R07.9 - Chest pain, unspecified REAL BAUER MD November 13, 2020 12:57
== END 2020-11-13 12:20 | disposition home or self-care (01) ==
LOC: EDUNIT# 01:16 → ER 01:18 → ICU 03:24
PROVIDERS: ADMIT Family Medicine; ATTEND Family Medicine
DX: R07.9 Chest pain, unspecified (principal); I25.110 Atherosclerotic heart disease of native coronary artery with unstable angina pectoris; I10 Essential (primary) hypertension; G43.909 Migraine, unspecified, not intractable, without status migrainosus; M19.90 Unspecified osteoarthritis, unspecified site; E11.9 Type 2 diabetes mellitus without complications; E78.5 Hyperlipidemia, unspecified; E66.9 Obesity, unspecified; Z79.82 Long term (current) use of aspirin; Z79.02 Long term (current) use of antithrombotics/antiplatelets; Z79.891 Long term (current) use of opiate analgesic; Z79.899 Other long term (current) drug therapy; Z79.84 Long term (current) use of oral hypoglycemic drugs; Z68.41 Body mass index [BMI] 40.0-44.9, adult; Z87.891 Personal history of nicotine dependence
CPT/HCPCS: 36415; 71045; 80053; 80306; 81000; 82947; 83735; 83874; 84484; 85025; 85610; 85730; 93005; 93041